=== PATIENT | male | born 1950 | race Caucasian/White ===

== ENCOUNTER → 2018-07-03 12:37 | Outpatient (CLI) | payer OTHER, SELFPAY ==
--- NOTE | 2018-07-03 | DI.RAD.S_ITS ---
PROCEDURE: [place] WRIST INJECTION MR/CT RT INDICATIONS: Pain in right wrist TECHNIQUE: After informed consent had been obtained, the wrist was examined fluoroscopically, and a site chosen for injection of the radiocarpal compartment from a dorsal approach. Skin was prepped and draped in a sterile fashion and 1% lidocaine infiltrated from the skin down to the articular surface. A hypodermic needle was then introduced into the articular space and a modest amount of contrast medium was instilled confirming intra-articular needle tip placement. This was followed by approximately 4 mL of a dilute gadolinium solution. Needle was removed and dressing was applied. The patient experienced no complications throughout the procedure and left the fluoroscopic suite in no apparent distress. FINDINGS: A single fluoroscopic spot image demonstrates intra-articular location to injected iodinated contrast. IMPRESSION: Successful fluoroscopic-guided administration of dilute Gadolinium solution for wrist MR arthrogram. Dictated by: Brayden Jaquez M.D. on 07/03/2018 at 14:48 Approved by: Brayden Jaquez M.D. on 07/03/2018 at 14:48
--- NOTE | 2018-07-03 | DI.MRI.S_ITS ---
PROCEDURE: MR WRIST RT W CON INDICATIONS: Pain in right wrist TECHNIQUE: After the administration of 3-4 mL of dilute intra-articular Gadolinium contrast into the radiocarpal compartment, coronal T1 spin echo with fat saturation and T2 fast spin echo with fat saturation, axial T1 spin echo and T2 fast spin echo with fat saturation, sagittal T1 spin echo with and without fat saturation through the wrist. COMPARISON: [facility], CR, XR WRIST 3+ VIEWS RIGHT, 06/03/2018, 9:24. [facility], , [place] WRIST INJECTION MR/CT RT, 07/03/2018, 13:00. FINDINGS: Image quality: Excellent. Bones and cartilage: The carpal bones are normally aligned. Subcentimeter scattered degenerative cysts seen throughout the proximal carpal row. No bone marrow contusions or fractures. No evidence for avascular necrosis. There is partial thickness radiocarpal articular cartilage loss. . Carpal ligaments: The scapholunate ligament is not well visualized in particular the dorsal component is possibly absent. There is frayed appearance of the volar component. Trace gadolinium signal intensity seen in the midcarpal compartment, inferring full thickness defect. The radioscaphocapitate and radiolunotriquetral ligaments appear intact. The arcuate ligament and short radiolunate ligament also appear normal. The dorsal intercarpal and radiotriquetral ligaments appear intact. On sagittal images, the pisohamate ligament appears intact. Triangular fibrocartilage complex: The triangular fibrocartilage disc, with its styloid and foveal lamina, appears intact. No gadolinium extravasation into the distal radioulnar joint. The adjacent meniscal homolog appears normal. The ulnar collateral ligament appears intact. The extensor carpi ulnaris tendon is normal in location and morphology. Tendons and soft tissues: The carpal tunnel structures appear normal, including the median nerve. The ulnar nerve appears normal within Guyon's canal. Minimal fluid adjacent to the extensor carpi radialis longus and brevis tendons, raising the possibility of minimal tenosynovitis although unclear clinical significance. No soft tissue ganglion cysts. IMPRESSION: Poor visualization of the scapholunate ligament, with suggestion of trace gadolinium signal intensity in the midcarpal compartment. This suggests scapholunate ligament tear. In particular the dorsal component is not well seen. Mild radiocarpal joint degeneration. Dictated by: Guillaume Rodriguez M.D. on 07/03/2018 at 15:08 Approved by: Guillaume Rodriguez M.D. on 07/03/2018 at 15:19
== END ==
PROVIDERS: PCP Family Medicine; Visit Provider Orthopaedic Surgery
DX: M25.531 Pain in right wrist (principal); M19.031 Primary osteoarthritis, right wrist
CPT/HCPCS: 20605; 73222; 77002

== ENCOUNTER → 2018-12-12 10:13 | Outpatient (CLI) | payer OTHER, SELFPAY | PROVIDERS: PCP Family Medicine; Visit Provider Orthopaedic Surgery | DX: Z01.818 Encounter for other preprocedural examination (principal) | CPT/HCPCS: 93005 ==

== ENCOUNTER → 2020-09-03 12:30 | Outpatient (CLI) | payer MEDICARE, SELFPAY ==
--- NOTE | 2020-09-03 | DI.US.S_ITS ---
PROCEDURE: US RENAL COMPLETE INDICATIONS: ACUTE RIGHT FLANK PAIN TECHNIQUE: Real-time scanning was performed of the kidneys and bladder, with image documentation. COMPARISON: None. FINDINGS: Kidneys: Kidneys are normal in size. Right kidney measures 10 cm long; left kidney measures 11 cm long. Right renal cortical thickness is 1.9 cm; left renal cortical thickness is 1.4 cm. Renal cortical echotexture is normal. No hydronephrosis or nephrolithiasis. No suspicious solid mass lesions. Bladder: Pre-void bladder volume is 358 mL. Post-void residual is 13 mL. Pre-void images demonstrate no intraluminal masses or stones. On pre-void images, neither ureteral jets are noted with color Doppler interrogation. (Of note, ureteral jets may not be detectable in up to 25% of cases due to insufficient differences in specific gravity between ureteral and bladder urine). Miscellaneous: No free pelvic fluid. IMPRESSION: Normal kidneys. Dictated by: Jigar FISCHER Interpreted: Brayden Jaquez MD on 09/03/2020 at 14:47 Transcribed by: VIVIAN on 09/03/2020 at 14:48 Approved by: Brayden Jaquez M.D. on 09/03/2020 at 14:49
== END ==
PROVIDERS: PCP Family Medicine; Referring Provider Nurse Practitioner Family; Visit Provider Nurse Practitioner Family
DX: R10.9 Unspecified abdominal pain (principal)
CPT/HCPCS: 76770

== ENCOUNTER → 2022-02-07 08:38 | Outpatient (CLI) | payer MEDICARE, SELFPAY | PROVIDERS: Referring Provider Radiology Radiation Oncology; Visit Provider Radiology Radiation Oncology | DX: M85.852 Other specified disorders of bone density and structure, left thigh (principal); C61 Malignant neoplasm of prostate; Z13.820 Encounter for screening for osteoporosis | CPT/HCPCS: 77080 ==

== ENCOUNTER → 2022-03-10 10:17 | Outpatient (CLI) | payer MEDICARE, SELFPAY ==
--- NOTE | 2022-03-10 | DI.CT.S_ITS ---
PROCEDURE: CT SINUS SCREEN WO CON INDICATIONS: Chronic pansinusitis TECHNIQUE: Noncontrast 3.0 mm axial images acquired from the frontal sinuses to the mid-sella, with coronal and sagittal reformats. For radiation dose reduction, the following was used: automated exposure control, adjustment of mA and/or kV according to patient size. COMPARISON: [facility], CT, SINUS SCREEN WO CONTRAST, 03/17/2013, 10:59. FINDINGS: Image quality: Excellent. Maxillary Sinuses: There is at least moderate bilateral maxillary sinus mucosal thickening. Air-fluid levels are also seen within the maxillary sinuses. The medial shine of the maxillary sinuses have been removed. Ethmoid Air Cells: Portions of the ethmoid air cells have been removed. Many of the remaining ethmoid air cells demonstrate demineralization. Moderate mucosal thickening is seen within the ethmoid air cells. Sphenoid Sinuses: [id number] mucosal thickening is seen within the right sphenoid sinus, with mild left sphenoid sinus mucosal thickening. No definite bony changes. Frontal Sinuses: There is mild mucosal thickening seen within the inferior medial frontal sinuses. No definite bony changes are seen. Ostiomeatal Complexes: Removed. Miscellaneous: Visualized intra-orbital contents are normal. No wei bullosa or paradoxical turbinate curvature. No significant nasal septal deviation. IMPRESSION: Generalized sinus disease is seen, which is worst within the maxillary sinuses. Areas of bony remodeling are seen, which are consistent with chronic sinusitis. Air-fluid levels are also seen within the maxillary sinuses, which are commonly observed in patients with acute sinusitis. Prior postoperative change, with bilateral antrectomy and removal of portions of the ethmoid air cell septations. Dictated by: Jose Price M.D. on 03/10/2022 at 11:48 Approved by: Jose Price M.D. on 03/10/2022 at 11:52
== END ==
PROVIDERS: PCP Family Medicine; Referring Provider Physician Assistant; Visit Provider Physician Assistant
DX: J32.4 Chronic pansinusitis (principal)
CPT/HCPCS: 70486

== ENCOUNTER → 2024-01-28 11:12 | Outpatient (CLI) | payer MEDICARE, SELFPAY ==
--- NOTE | 2024-01-28 | DI.RAD.S_ITS ---
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 FINDINGS: Lumbar Spine: Bone mineral density 1.08 g/cm2, T score 0.3, previous 0.3 Left Hip: Bone mineral density 0.90 g/cm2, T score -0.4, previous 0.1. Left Femoral Neck: Bone mineral density 0.68 g/cm2, T score -1.6, previous -1.4. Right Hip: Bone mineral density 0.88 g/cm2, T score -0.5, previous -0.1. Right Femoral Neck: Bone mineral density 0.66 g/cm2, T score -1.7, previous -1.7. Fracture Risk Calculation (when applicable): 10-year fracture risk of a major osteoporotic fracture 11 percent and of a hip fracture 4.1 percent. (T score greater or equal to -1.0 to: NORMAL) (T score from -1.1 to -2.4: OSTEOPENIA) (T score less than or equal to -2.5: OSTEOPOROSIS) IMPRESSION: Osteopenia, fracture risks as above. Follow-up guidelines as follows: Osteoporosis: Consider a repeat DEXA and Vertebral Fracture Assessment (VFA) exam in 2 years or sooner if medically necessary, to reassess this patient's status. Osteopenia: Consider a repeat DEXA in 2-3 years to reassess this patient's status, or if there is a new clinical indication. Normal: Consider a repeat DEXA in 5 years or sooner, or if there is a new clinical indication. All treatment decisions require clinical judgment and consideration of individual patient factors, including patient preferences, comorbidities, previous drug use, risk factors not captured in the FRAX model (e.g., frailty, falls, vitamin D deficiency, increased bone turnover, interval significant decline in bone density ) and possible under- or over-estimation of fracture risk by FRAX. In addition, the NOF Guide recommends that FDA-approved medical therapies be considered in postmenopausal women and men age >= 50 years with a: * Hip or vertebral (clinical or morphometric) fracture * T-score of <=-2.5 at the spine or hip * Ten-year fracture probability by FRAX of >= 3% for hip fracture or >=20% for major osteoporotic fracture. People with diagnosed cases of osteoporosis or at high risk for fracture should have regular bone mineral density tests. For patients eligible for Medicare, routine testing is allowed once every 2 years. The testing frequency can be increased to one year for patients who have rapidly progressing disease, those who are receiving or discontinuing medical therapy to restore bone mass, or have additional risk factors. Dictated by: Candelario Arriaza M.D. on 01/28/2024 at 15:26 Approved by: Candelario Arriaza M.D. on 01/28/2024 at 15:27
== END ==
PROVIDERS: PCP Family Medicine; Referring Provider Internal Medicine Rheumatology; Visit Provider Internal Medicine Rheumatology
DX: M35.3 Polymyalgia rheumatica (principal); M85.89 Other specified disorders of bone density and structure, multiple sites; Z79.52 Long term (current) use of systemic steroids
CPT/HCPCS: 77080